=== PATIENT | female | born 1965 | race Caucasian/White ===

== ENCOUNTER 2018-06-03 14:14 | Outpatient (CLI) | payer OTHER ==
[~2018-06-03 14:14] MED LIST: HYDR-565 PO; ONDA4TAB9 PO
[2018-06-03 14:53] VITALS: BP 113/74
== END 2018-06-03 15:45 | disposition home or self-care (01) ==
LOC: ORTHO 14:14
PROVIDERS: ATTEND Nurse Practitioner Family
DX: S52.592A Other fractures of lower end of left radius, initial encounter for closed fracture (principal); S52.612A Displaced fracture of left ulna styloid process, initial encounter for closed fracture; J45.909 Unspecified asthma, uncomplicated; Z88.2 Allergy status to sulfonamides; X58.XXXA Exposure to other specified factors, initial encounter; Y93.89 Activity, other specified; Y92.89 Other specified places as the place of occurrence of the external cause; Y99.8 Other external cause status
CPT/HCPCS: 73100; 99214

== ENCOUNTER 2018-06-10 09:59 | Outpatient (CLI) | payer OTHER ==
[2018-06-10 09:53] VITALS: BP 134/91
== END 2018-06-10 10:27 | disposition home or self-care (01) ==
LOC: ORTHO 09:59
PROVIDERS: ATTEND Nurse Practitioner Family
DX: S52.502D Unspecified fracture of the lower end of left radius, subsequent encounter for closed fracture with routine healing (principal); S52.612D Displaced fracture of left ulna styloid process, subsequent encounter for closed fracture with routine healing; J45.909 Unspecified asthma, uncomplicated; F12.90 Cannabis use, unspecified, uncomplicated; X58.XXXD Exposure to other specified factors, subsequent encounter
CPT/HCPCS: 73110; 99213

== ENCOUNTER → 2018-06-21 | Outpatient (CLI) | payer OTHER ==
[~2018-06-21] MED LIST changes: +NO HOME MEDS
[2018-06-21 13:10] VITALS: BP 131/71
== END | disposition home or self-care (01) ==
LOC: ORTHO 09:43
PROVIDERS: ATTEND Nurse Practitioner Family
DX: S52.502G Unspecified fracture of the lower end of left radius, subsequent encounter for closed fracture with delayed healing (principal); F12.90 Cannabis use, unspecified, uncomplicated; F32.9 Major depressive disorder, single episode, unspecified; I10 Essential (primary) hypertension; J45.909 Unspecified asthma, uncomplicated; Z88.2 Allergy status to sulfonamides; Z72.89 Other problems related to lifestyle; Z98.890 Other specified postprocedural states; X58.XXXD Exposure to other specified factors, subsequent encounter
CPT/HCPCS: 99215

== ENCOUNTER 2018-06-29 13:49 | Day surgery (SDC) | payer OTHER ==
[2018-06-23 15:55] LABS: BASOPHILS # (AUTO) 0.1 X10'3 (0-0.2); BASOPHILS % (AUTO) 0.6 % (0-1); EOSINOPHILS # (AUTO) 0.1 X10'3 (0-0.9); EOSINOPHILS % (AUTO) 1.4 % (0-6); LYMPHOCYTES # (AUTO) 1.9 X10'3 (1.1-4.8); LYMPHOCYTES % (AUTO) 22.1 % (21-51); MEAN CORPUSCULAR HEMOGLOBIN 30.6 PG (27.0-31.0); MEAN CORPUSCULAR HGB CONC 33.9 % (33.0-36.5); MEAN CORPUSCULAR VOLUME 90.4 FL (78-98); MEAN PLATELET VOLUME 7.6 FL (7.4-10.4); MONOCYTES # (AUTO) 0.3 X10'3 (0-0.9); MONOCYTES % (AUTO) 3.7 % (2-12); NEUTROPHILS # (AUTO) 6.3 X10'3 (1.8-7.7); NEUTROPHILS % (AUTO) 72.2 % (42-75); PRE OP HEMATOCRIT 39.7 % (35.0-45.0); PRE OP HEMOGLOBIN 13.4 g/dL (12.0-16.0); PRE OP PLATELET COUNT 311 X10'3 (140-440); RED BLOOD COUNT 4.39 X10'6 (4.20-5.60); RED CELL DISTRIBUTION WIDTH 14.4 % (11.5-14.5)
[2018-06-23 16:11] LABS: ALBUMIN 3.6 G/DL (3.4-5.0); ALBUMIN/GLOBULIN RATIO 0.9 (1.1-1.5); ALKALINE PHOSPHATASE 64 IU/L (46-116); BLOOD UREA NITROGEN 19 MG/DL (7-18); CALCIUM 9.2 MG/DL (8.5-10.1); CHLORIDE 101 MMOL/L (99-107); CREATININE 0.73 MG/DL (0.40-0.90); PRE OP ALT 11 U/L (30-65); PRE OP ANION GAP 3 (8-16); PRE OP AST 9 U/L (10-37); PRE OP BILIRUB, TOTAL 0.3 MG/DL (0.0-1.0); PRE OP GLUCOSE 93 MG/DL (70-104); PRE OP POTASSIUM 4.8 MMOL/L (3.4-5.1); PRE OP SODIUM 136 MMOL/L (135-145); TOTAL CARBON DIOXIDE 32.2 MMOL/L (24-32); TOTAL PROTEIN 7.5 G/DL (6.4-8.2); eGFR 83 ML/MIN
[~2018-06-29] VITALS: Ht 172.7 cm; Wt 71.1 kg
[2018-06-29] VITALS (9 sets, daily range): BP systolic 98–146; BP diastolic 69–94
[~2018-06-29 13:49] MED LIST changes: +Cefazolin 2GM/50ML dext iso,osmotic IVPB IV ONE; -HYDR-565 PO; -ONDA4TAB9 PO; +VANCOMYCIN INJ 1000 MG in NORMAL SALINE 250ml IV.SOLN IV ONE; +famotidine 20mg tablet PO ONE; +ringers solution, lacted 1,000 ML IV SCH
[2018-06-29] MEDS ORDERED: LIDOcaine 1% (10mg/ml) 2ml vial ONE (14:28)
[2018-06-29] MEDS ORDERED: NAPR220T67 PO (14:35)
[2018-06-29] MEDS ORDERED: HYDR-565 PO (14:35)
[2018-06-29] MEDS ORDERED: BUPIVAcaine/PF 2.5mg/ml (0.25%) 10ml vial ONE (16:54)
[2018-06-29] MEDS ORDERED: ROPIVAcaine 0.5% (5mg/ml) 30ml vial ONE (18:22)
[2018-06-29] MEDS ORDERED: sevoflurane 250ml liquid IH ONE (18:23)
[2018-06-29] MEDS ORDERED: midazolam 2 mg/2 ml injection ONE (18:26)
[2018-06-29] MEDS ORDERED: fentaNYL/PF 50MCG/1 ML 2ML syringe ONE (18:26)
[2018-06-29] MEDS ORDERED: dexamethasone sod phosphate 4mg/ml inj. ONE (18:27)
[2018-06-29] MEDS ORDERED: propofol inj 20 ML IV ONE (18:51)
[2018-06-29] MEDS ORDERED: ondansetron/PF 4mg/2ml inj ONE (18:51)
[2018-06-29] MEDS ORDERED: LIDOcaine 2% (20mg/ml) 5ml vial ONE (18:51)
[2018-06-29] MEDS ORDERED: ringers solution, lacted 1,000 ML IV SCH (19:17)
[2018-06-29] MEDS ORDERED: ondansetron/PF 4mg/2ml inj IV PRN (19:20)
[2018-06-29] MEDS ORDERED: hydrALAZINE 20mg/ml inj. IV PRN (19:20)
[2018-06-29] MEDS ORDERED: labetalol 20mg/4ml (5mg/ml) syringe IV PRN (19:20)
[2018-06-29] MEDS ORDERED: morphine 4 MG/ML inj SYRINge IV PRN (19:20)
[2018-06-29] MEDS ORDERED: fentaNYL/PF 50MCG/1 ML 2ML syringe IV PRN (19:20)
[2018-06-29] MEDS ORDERED: morphine 10mg/ml inj. ONE (19:46)
[2018-06-29] MEDS: fentaNYL/PF 50MCG/1 ML 2ML syringe IV PRN ×4 (20:02→20:37)
[2018-06-29] MEDS: morphine 4 MG/ML inj SYRINge IV PRN ×2 (20:14→20:20)
[2018-06-29] MEDS ORDERED: acetaminophen 1,000mg/100ml IV 100 ML IV ONE (20:15)
[2018-06-29] MEDS ORDERED: ketorolac tromethamine 15mg/ml inj. IV ONE (20:15)
[2018-06-29] MEDS ORDERED: HYDROcodone/acetaminophen 10/325mg tab PO ONE (20:35)
== END 2018-06-29 21:15 | disposition home or self-care (01) ==
LOC: PAS 13:49
PROVIDERS: ATTEND Orthopaedic Surgery
DX: S52.552A Other extraarticular fracture of lower end of left radius, initial encounter for closed fracture (principal); G89.18 Other acute postprocedural pain; I10 Essential (primary) hypertension; J45.998 Other asthma; F32.9 Major depressive disorder, single episode, unspecified; F12.90 Cannabis use, unspecified, uncomplicated; Z86.14 Personal history of Methicillin resistant Staphylococcus aureus infection; Z88.2 Allergy status to sulfonamides; Z79.891 Long term (current) use of opiate analgesic; Z87.891 Personal history of nicotine dependence; Z90.89 Acquired absence of other organs; Z79.899 Other long term (current) drug therapy; Z98.890 Other specified postprocedural states; V29.9XXA Motorcycle rider (driver) (passenger) injured in unspecified traffic accident, initial encounter; Y93.89 Activity, other specified; Y92.89 Other specified places as the place of occurrence of the external cause; Y99.8 Other external cause status
CPT/HCPCS: 25607; 36415; 64415; 64450; 71046; 80053; 85025; 93005; A6449; C1713; J0131; J0690; J1100; J1885; J2001; J2250; J2270; J2405; J2704; J2795; J3010; J3370; J3490; J7120; A7000

== ENCOUNTER 2018-07-06 09:24 | Outpatient (CLI) | payer OTHER ==
[2018-07-06 09:20] VITALS: BP 157/84
[~2018-07-06 09:24] MED LIST changes: -Cefazolin 2GM/50ML dext iso,osmotic IVPB IV ONE; +HYDR-565 PO; +NAPR220T67 PO; -NO HOME MEDS; -VANCOMYCIN INJ 1000 MG in NORMAL SALINE 250ml IV.SOLN IV ONE; -famotidine 20mg tablet PO ONE; -ringers solution, lacted 1,000 ML IV SCH
== END 2018-07-06 10:03 | disposition home or self-care (01) ==
LOC: ORTHO 09:24
PROVIDERS: ATTEND Nurse Practitioner Family
DX: S52.592G Other fractures of lower end of left radius, subsequent encounter for closed fracture with delayed healing (principal); S52.612G Displaced fracture of left ulna styloid process, subsequent encounter for closed fracture with delayed healing; F12.90 Cannabis use, unspecified, uncomplicated; M85.88 Other specified disorders of bone density and structure, other site; M79.89 Other specified soft tissue disorders; J45.909 Unspecified asthma, uncomplicated; Z88.2 Allergy status to sulfonamides; V29.9XXD Motorcycle rider (driver) (passenger) injured in unspecified traffic accident, subsequent encounter
CPT/HCPCS: 73100; 99213; A6449

== ENCOUNTER 2018-07-13 09:38 | Outpatient (CLI) | payer OTHER ==
[2018-07-13 09:44] VITALS: BP 131/77
[2018-07-13] MEDS ORDERED: LIDOcaine 2% 5ml jelly ONE (09:52)
== END 2018-07-13 10:21 | disposition home or self-care (01) ==
LOC: ORTHO 09:38
PROVIDERS: ATTEND Nurse Practitioner Family
DX: S52.502D Unspecified fracture of the lower end of left radius, subsequent encounter for closed fracture with routine healing (principal); S52.612D Displaced fracture of left ulna styloid process, subsequent encounter for closed fracture with routine healing; F12.90 Cannabis use, unspecified, uncomplicated; J45.909 Unspecified asthma, uncomplicated; Z88.2 Allergy status to sulfonamides; W19.XXXD Unspecified fall, subsequent encounter
CPT/HCPCS: 99213; A4590; A6449

== ENCOUNTER 2018-07-27 09:43 | Outpatient (CLI) | payer OTHER ==
[2018-07-27 09:47] VITALS: BP 110/71
== END 2018-07-27 10:17 | disposition home or self-care (01) ==
LOC: ORTHO 09:43
PROVIDERS: ATTEND Nurse Practitioner Family
DX: S52.612G Displaced fracture of left ulna styloid process, subsequent encounter for closed fracture with delayed healing (principal); S52.502D Unspecified fracture of the lower end of left radius, subsequent encounter for closed fracture with routine healing; F12.90 Cannabis use, unspecified, uncomplicated; J45.909 Unspecified asthma, uncomplicated; Z88.2 Allergy status to sulfonamides; W19.XXXD Unspecified fall, subsequent encounter
CPT/HCPCS: 73100

== ENCOUNTER 2018-08-31 09:46 | Outpatient (CLI) | payer OTHER ==
[2018-08-31 09:46] VITALS: BP 153/92
[~2018-08-31 09:46] MED LIST changes: +HYDR-4353 PO; -HYDR-565 PO
== END 2018-08-31 10:27 | disposition home or self-care (01) ==
LOC: ORTHO 09:46
PROVIDERS: ATTEND Nurse Practitioner Family
DX: S52.512D Displaced fracture of left radial styloid process, subsequent encounter for closed fracture with routine healing (principal); S52.612D Displaced fracture of left ulna styloid process, subsequent encounter for closed fracture with routine healing; F12.90 Cannabis use, unspecified, uncomplicated; Z88.2 Allergy status to sulfonamides; V29.9XXD Motorcycle rider (driver) (passenger) injured in unspecified traffic accident, subsequent encounter
CPT/HCPCS: 73100; 99213

== ENCOUNTER 2018-09-22 11:07 | Outpatient (CLI) | payer OTHER ==
[2018-09-22 11:21] VITALS: BP 149/99
== END 2018-09-22 11:52 | disposition home or self-care (01) ==
LOC: ORTHO 11:07
PROVIDERS: ATTEND Nurse Practitioner Family
DX: S52.592D Other fractures of lower end of left radius, subsequent encounter for closed fracture with routine healing (principal); S52.612G Displaced fracture of left ulna styloid process, subsequent encounter for closed fracture with delayed healing; M25.432 Effusion, left wrist; F12.90 Cannabis use, unspecified, uncomplicated; Z88.2 Allergy status to sulfonamides; V87.8XXD Person injured in other specified noncollision transport accidents involving motor vehicle (traffic), subsequent encounter
CPT/HCPCS: 73100; 99213

== ENCOUNTER 2018-10-13 10:51 | Outpatient (CLI) | payer OTHER ==
[2018-10-13 10:49] VITALS: BP 131/91
== END 2018-10-13 11:16 | disposition home or self-care (01) ==
LOC: ORTHO 10:51
PROVIDERS: ATTEND Nurse Practitioner Family
DX: S52.592D Other fractures of lower end of left radius, subsequent encounter for closed fracture with routine healing (principal); S52.612D Displaced fracture of left ulna styloid process, subsequent encounter for closed fracture with routine healing; Z88.2 Allergy status to sulfonamides; J45.909 Unspecified asthma, uncomplicated; V29.9XXD Motorcycle rider (driver) (passenger) injured in unspecified traffic accident, subsequent encounter
CPT/HCPCS: 73100; 99213

== ENCOUNTER 2018-11-01 10:01 | Outpatient (CLI) | payer OTHER ==
[2018-11-01 09:46] VITALS: BP 145/85
== END 2018-11-01 10:22 | disposition home or self-care (01) ==
LOC: ORTHO 10:01
PROVIDERS: ATTEND Nurse Practitioner Family
DX: S52.592D Other fractures of lower end of left radius, subsequent encounter for closed fracture with routine healing (principal); S52.612D Displaced fracture of left ulna styloid process, subsequent encounter for closed fracture with routine healing; J45.909 Unspecified asthma, uncomplicated; F17.200 Nicotine dependence, unspecified, uncomplicated; Z88.2 Allergy status to sulfonamides; V29.9XXD Motorcycle rider (driver) (passenger) injured in unspecified traffic accident, subsequent encounter
CPT/HCPCS: 73100; 99213

== ENCOUNTER 2018-11-30 10:33 | Outpatient (CLI) | payer OTHER ==
[2018-11-30 10:36] VITALS: BP 125/80
== END 2018-11-30 11:09 | disposition home or self-care (01) ==
LOC: ORTHO 10:33
PROVIDERS: ATTEND Nurse Practitioner Family
DX: S52.592D Other fractures of lower end of left radius, subsequent encounter for closed fracture with routine healing (principal); S52.612D Displaced fracture of left ulna styloid process, subsequent encounter for closed fracture with routine healing; M79.89 Other specified soft tissue disorders; F12.90 Cannabis use, unspecified, uncomplicated; J45.909 Unspecified asthma, uncomplicated; Z88.2 Allergy status to sulfonamides; V29.9XXD Motorcycle rider (driver) (passenger) injured in unspecified traffic accident, subsequent encounter
CPT/HCPCS: 73100; 99213

== ENCOUNTER 2019-01-04 09:09 | Outpatient (CLI) | payer OTHER ==
[2019-01-04 09:18] VITALS: BP 126/106
== END 2019-01-04 09:58 | disposition home or self-care (01) ==
LOC: ORTHO 09:09
PROVIDERS: ATTEND Nurse Practitioner Family
DX: S52.592D Other fractures of lower end of left radius, subsequent encounter for closed fracture with routine healing (principal); S52.612D Displaced fracture of left ulna styloid process, subsequent encounter for closed fracture with routine healing; F12.90 Cannabis use, unspecified, uncomplicated; J45.909 Unspecified asthma, uncomplicated; F17.200 Nicotine dependence, unspecified, uncomplicated; Z88.2 Allergy status to sulfonamides; V87.8XXD Person injured in other specified noncollision transport accidents involving motor vehicle (traffic), subsequent encounter
CPT/HCPCS: 73110; 99213

== ENCOUNTER 2019-01-25 11:17 | Outpatient (CLI) | payer OTHER ==
[2019-01-25 11:09] VITALS: BP 126/76
== END 2019-01-25 11:46 | disposition home or self-care (01) ==
LOC: ORTHO 11:17
PROVIDERS: ATTEND Nurse Practitioner Family
DX: S52.592D Other fractures of lower end of left radius, subsequent encounter for closed fracture with routine healing (principal); S52.612D Displaced fracture of left ulna styloid process, subsequent encounter for closed fracture with routine healing; J45.909 Unspecified asthma, uncomplicated; Z88.2 Allergy status to sulfonamides; V29.9XXD Motorcycle rider (driver) (passenger) injured in unspecified traffic accident, subsequent encounter
CPT/HCPCS: 99213

== ENCOUNTER 2019-09-15 10:05 | Emergency (ER) | payer OTHER ==
[~2019-09-15] VITALS: Ht 170.2 cm; Wt 87.0 kg
[2019-09-15] MEDS ORDERED: HYDR-4353 PO (12:43)
[2019-09-15] MEDS ORDERED: BISA-155 PO (12:43)
[2019-09-15] MEDS ORDERED: HYDROcodone/acetaminophen 10/325mg tab PO ONE (13:35)
[2019-09-15 14:24] VITALS: BP 126/72
== END 2019-09-15 14:26 | disposition home or self-care (01) ==
LOC: ER 10:06
DX: S82.132A Displaced fracture of medial condyle of left tibia, initial encounter for closed fracture (principal); S80.01XA Contusion of right knee, initial encounter; I10 Essential (primary) hypertension; J45.909 Unspecified asthma, uncomplicated; Z90.89 Acquired absence of other organs; Z88.2 Allergy status to sulfonamides; W18.49XA Other slipping, tripping and stumbling without falling, initial encounter; Y93.89 Activity, other specified; Y92.481 Parking lot as the place of occurrence of the external cause; Y99.9 Unspecified external cause status
CPT/HCPCS: 29505; 73564; 99284

== ENCOUNTER 2023-12-12 13:20 | Emergency (ER) | payer OTHER ==
[~2023-12-12] VITALS: Ht 170.2 cm; Wt 91.0 kg
[~2023-12-12 13:20] MED LIST changes: +BISA-155 PO
[2023-12-12 13:39] VITALS: BP 156/91; PULSE 85; RESP 22; TEMP 97.4; O2SAT 98
== END 2023-12-12 16:49 | disposition left against medical advice (07) ==
LOC: ER 13:21
DX: R21 Rash and other nonspecific skin eruption (principal); Z53.21 Procedure and treatment not carried out due to patient leaving prior to being seen by health care provider
CPT/HCPCS: 99281

== ENCOUNTER 2025-07-17 10:01 | Outpatient (CLI) | payer OTHER, MEDICAID ==
[~2025-07-17 10:01] MED LIST changes: +CAST120O MC; +DUPI300P SQ; +LORA10TA65 PO
--- NOTE | 2025-07-17 12:36 | RADIOLOGY REPORT ---
EXAM: US ULTRASOUND OF ABDOMEN HISTORY: GENERALIZED ABD PAIN COMPARISON: None TECHNIQUE: Multiple longitudinal and transverse sonographic images of the abdomen were obtained. Dopp ler was applied as indicated. FINDINGS: [PANCREAS]: The visualized portions of the pancreas are unremarkable. [AORTA]: Normal [LIVER]: 19.76 cm. increased echogenicity. There is no focal hepatic mass lesion detected. Question s light nodularity [GALLBLADDER]: Gallbladder wall measures 0.2 cm. There is no gallbladder sludge or shadowing gallston e. There is no sonographic Pritchett sign. [BILIARY TREE]: Common bile duct measures 0.3 cm in diameter. no intrahepatic biliary ductal dilatati on. [ASCITES]: No free fluid is demonstrated. [VESSELS]: The main portal vein is patent on color Doppler evaluation. The inferior vena cava is womack nt on color Doppler evaluation. [RIGHT KIDNEY]: 9.8 x 4.4 x 6.1 cm. normal cortical echogenicity and normal contour. No hydronephrosi s. IMPRESSION: 1. Question echogenic liver with slight nodularity. Correlate for hepatic steatosis.
== END 2025-07-17 23:59 | disposition home or self-care (01) ==
LOC: RAD 10:01
PROVIDERS: ATTEND Nurse Practitioner Family
DX: R10.84 Generalized abdominal pain (principal)
CPT/HCPCS: 76700

== ENCOUNTER 2025-09-06 09:35 | Outpatient (CLI) | payer OTHER, MEDICAID ==
--- NOTE | 2025-09-06 12:33 | RADIOLOGY REPORT ---
PROCEDURE: MR MRI LUMBAR SPINE Indication: WEDGE COMPRESSION FRACTURE OF FIRST LUMBAR VERTEBRA, INIT COMPARISON: None TECHNIQUE: Multiplanar multisequence images of the the lumbar spine are obtained. FINDINGS: For the purpose of this examination, there are 5 lumbar vertebral body types counting from the lumbosacral junction. Chronic L3 compression fracture deformity with 30% loss height. Chronic L2 compression deformity with 30% loss height. Chronic L1 compression deformity with 80% loss height. Chronic T12 compression deformity with 70% loss height anteriorly. Chronic T10 compression deformity with 40% loss height. Moderate to advanced multilevel disc space narrowing and desiccation. 3 mm anterolisthesis L4 upon L5.4 mm anterolisthesis L5 on S1. Conus terminates at the level of the L1 vertebral body level. T12-L1: 3 mm disc protrusion. Tmmr-sm-yyegkcsn facet and flavum hypertrophy. Thecal sac measures 7 mm AP. Moderate spinal canal stenosis. Moderate to severe right and moderate left neural foraminal stenosis. L1-2: 3 mm disc protrusion. Moderate facet and flavum hypertrophy. Thecal sac measures 8 mm AP. July-wr-nrvbbmnh spinal canal stenosis. Severe bilateral neural foraminal stenosis. L2-3: 3 mm disc protrusion. Gfvm-on-cwmcgclu facet and flavum hypertrophy. Thecal sac measures 8 mm AP. Zbph-nx-tisnnfzt spinal canal stenosis. Severe left and moderate to severe right neural foraminal stenosis. L3-4: 3 mm disc protrusion. Moderate facet and flavum hypertrophy. Thecal sac measures 7 mm AP. Moderate spinal canal stenosis. Severe bilateral neural foraminal stenosis. L4-5: 3 mm disc protrusion. 3 mm anterolisthesis L4 upon L5. Thecal sac measures 5 mm AP. Severe spinal canal stenosis. Moderate to severe bilateral neural foraminal stenosis. L5-S1: 4 mm anterolisthesis of L5 upon S1. Moderate facet and flavum hypertrophy. Thecal sac measures 6 mm AP. Moderate to severe spinal canal stenosis. Severe bilateral neural foraminal stenosis. IMPRESSION: Moderate to severe lumbar degenerative disc disease with multiple lumbar compression deformities as described above. Severe spinal canal stenosis L4-5. Moderate to severe spinal canal stenosis L5- S1. Moderate spinal canal stenosis T12-L1 L3-4. Pjie-ve-ctryzuaz spinal canal stenosis L1-2 and L2-3 Moderate to severe multilevel neural foraminal stenosis as described.
== END 2025-09-06 23:59 | disposition home or self-care (01) ==
LOC: MRI02 09:35
PROVIDERS: ATTEND Nurse Practitioner Family
DX: M48.56XA Collapsed vertebra, not elsewhere classified, lumbar region, initial encounter for fracture (principal); M47.815 Spondylosis without myelopathy or radiculopathy, thoracolumbar region; M43.17 Spondylolisthesis, lumbosacral region; M51.25 Other intervertebral disc displacement, thoracolumbar region; M48.05 Spinal stenosis, thoracolumbar region; M47.818 Spondylosis without myelopathy or radiculopathy, sacral and sacrococcygeal region; M48.08 Spinal stenosis, sacral and sacrococcygeal region
CPT/HCPCS: 72148